=== PATIENT | female | born 1960 | race Two or more races ===

== ENCOUNTER 2021-08-27 17:28 | Inpatient (IN) | payer MEDICAID ==
[~2021-08-27] VITALS: Ht 154.9 cm; Wt 72.7 kg
[~2021-08-27 17:28] MED LIST: dexamethasone sod phosphate 10mg/ml inj ONE; ePHEDrine 50MG/ML INJ. ONE; glycopyrrolate 0.2mg/ml inj ONE; neostigmine methylsulfate 1 MG/ML 10ml vial ONE; sevoflurane 250ml liquid IH ONE
[2021-08-27 18:25] LABS: BASOPHILS # (AUTO) 0.1 X10'3 (0-0.2); BASOPHILS % (AUTO) 0.6 % (0-1); EOSINOPHILS # (AUTO) 0.1 X10'3 (0-0.9); EOSINOPHILS % (AUTO) 0.6 % (0-6); HEMATOCRIT 39.5 % (35.0-45.0); HEMOGLOBIN 13.2 g/dl (12.0-16.0); LYMPHOCYTES # (AUTO) 1.6 X10'3 (1.1-4.8); LYMPHOCYTES % (AUTO) 10.7 % (21-51); MEAN CORPUSCULAR HEMOGLOBIN 27.1 PG (27.0-31.0); MEAN CORPUSCULAR HGB CONC 33.5 g/dL (33.0-36.5); MEAN CORPUSCULAR VOLUME 80.9 FL (78-98); MONOCYTES # (AUTO) 0.9 X10'3 (0-0.9); NEUTROPHILS # (AUTO) 12.4 X10'3 (1.8-7.7); NEUTROPHILS % (AUTO) 82.1 % (42-75); PLATELET COUNT 430 X10'3 (140-440); RED BLOOD COUNT 4.88 X10'6 (4.20-5.60); RED CELL DISTRIBUTION WIDTH 14.2 % (11.5-14.5); WHITE BLOOD COUNT 15.1 X10'3 (4.5-11.0)
[2021-08-27 18:40] LABS: ALANINE AMINOTRANSFERASE 41 U/L (12-78); ALBUMIN 4.3 G/DL (3.4-5.0); ALKALINE PHOSPHATASE 85 IU/L (46-116); ANION GAP 10 (8-16); ASPARTATE AMINO TRANSFERASE 19 U/L (10-37); BILIRUBIN,TOTAL 0.6 MG/DL (0.1-1.0); BLOOD UREA NITROGEN 8 MG/DL (7-18); BUN/CREATININE RATIO 10.4 (6.6-38.0); CHLORIDE 100 MMOL/L (99-107); CREATININE 0.77 MG/DL (0.40-0.90); GLUCOSE 122 MG/DL (70-104); LIPASE 81 U/L (73-393); POTASSIUM 3.9 MMOL/L (3.5-5.1); SODIUM 135 MMOL/L (135-145); TOTAL CARBON DIOXIDE 25.3 MMOL/L (24-32); TOTAL PROTEIN 8.5 G/DL (6.4-8.2); eGFR 76 ML/MIN
[2021-08-27] MEDS ORDERED: normal saline 1000ml 1,000 ML IV ONE (22:40)
[2021-08-27] MEDS ORDERED: ketorolac tromethamine 15mg/ml inj. IV ONE (22:40)
[2021-08-27] MEDS ORDERED: ondansetron/PF 4mg/2ml inj IV ONE (22:40)
[2021-08-27] MEDS ORDERED: normal saline 1000ML IV soln IVB ONE (22:40)
[2021-08-27] MEDS ORDERED: IOHEXOL 300 MG/ML 30ML INFUS..BTL IV ONE (22:53)
[2021-08-27 23:33] LABS: APTT 35 SECONDS (22-32)
[2021-08-27 23:39] LABS: CLARITY,URINE CLEAR (Clear); COLOR,URINE YELLOW (Yellow); GLUCOSE, URINE NEGATIVE (Neg); KETONES,URINE 15 mg/dl (Neg); LEUKOCYTE ESTERASE ,URINE NEGATIVE (Neg); NITRITES, URINE NEGATIVE (Neg); OCCULT BLOOD,URINE NEGATIVE (Neg); PROTEIN,URINE NEGATIVE (Neg); URINE HCG NEGATIVE (NEG)
[2021-08-27 23:40] LABS: MAGNESIUM 1.9 MG/DL (1.5-2.4)
[2021-08-27 23:43] LABS: UA COLLECTION TYPE NON-SPECIFIED
[2021-08-27] MEDS ORDERED: HYDROcodone/acetaminophen 5mg/325mg tablet PO PRN (23:45)
[2021-08-27] MEDS ORDERED: magnesium hydroxide 30ml (MOM) UD suspension PO PRN (23:45)
[2021-08-27] MEDS ORDERED: metoclopramide 5 mg/ml inj IV PRN (23:45)
[2021-08-27] MEDS ORDERED: acetaminophen 325mg tablet PO PRN ×2 (23:45)
[2021-08-27] MEDS ORDERED: ondansetron/PF 4mg/2ml inj IV PRN (23:45)
[2021-08-27] MEDS ORDERED: mag hydrox/Alum hydrox/simeth 30ml oral suspension PO PRN (23:45)
[2021-08-27] MEDS ORDERED: morphine 2 MG/ML inj. syringe IV PRN (23:45)
[2021-08-28] VITALS (17 sets, daily range): BP systolic 99–144; BP diastolic 52–83
[2021-08-28] MEDS: morphine 2 MG/ML inj. syringe IV PRN ×2 (00:15→07:49)
[2021-08-28] MEDS: piperacillin/tazo 4.5gm/100ml 100 ML IV SCH ×4 (00:59→19:45)
[2021-08-28] MEDS: dextrose 5%-1/2 normal saline 1,000 ML IV SCH ×3 (01:00→21:07)
[2021-08-28 02:23] LABS: BASOPHILS % (AUTO) 0.2 % (0-1); EOSINOPHILS % (AUTO) 0.1 % (0-6); HEMATOCRIT 34.8 % (35.0-45.0); HEMOGLOBIN 11.9 g/dl (12.0-16.0); LYMPHOCYTES # (AUTO) 1.3 X10'3 (1.1-4.8); LYMPHOCYTES % (AUTO) 9.6 % (21-51); MEAN CORPUSCULAR HEMOGLOBIN 27.8 PG (27.0-31.0); MEAN CORPUSCULAR VOLUME 81.8 FL (78-98); MONOCYTES # (AUTO) 0.7 X10'3 (0-0.9); MONOCYTES % (AUTO) 5.2 % (2-12); NEUTROPHILS # (AUTO) 11.6 X10'3 (1.8-7.7); NEUTROPHILS % (AUTO) 84.9 % (42-75); PLATELET COUNT 358 X10'3 (140-440); RED BLOOD COUNT 4.26 X10'6 (4.20-5.60); RED CELL DISTRIBUTION WIDTH 14.2 % (11.5-14.5); WHITE BLOOD COUNT 13.7 X10'3 (4.5-11.0)
[2021-08-28 02:34] LABS: ALANINE AMINOTRANSFERASE 36 U/L (12-78); ALBUMIN 3.7 G/DL (3.4-5.0); ALBUMIN/GLOBULIN RATIO 0.9 (1.1-1.5); ALKALINE PHOSPHATASE 74 IU/L (46-116); ANION GAP 10 (8-16); ASPARTATE AMINO TRANSFERASE 21 U/L (10-37); BILIRUBIN,TOTAL 0.5 MG/DL (0.1-1.0); BLOOD UREA NITROGEN 7 MG/DL (7-18); BUN/CREATININE RATIO 10.4 (6.6-38.0); CALCIUM 8.7 MG/DL (8.5-10.1); CHLORIDE 101 MMOL/L (99-107); CREATININE 0.67 MG/DL (0.40-0.90); GLUCOSE 140 MG/DL (70-104); SODIUM 135 MMOL/L (135-145); TOTAL CARBON DIOXIDE 23.7 MMOL/L (24-32); eGFR 90 ML/MIN
[2021-08-28 02:51] LABS: POTASSIUM 4.1 MMOL/L (3.5-5.1)
--- NOTE | 2021-08-28 03:17 | NUR ---
Patient urinated in bedside commode x1
[2021-08-28] MEDS: docusate sod 100mg capsule PO SCH ×2 (07:23→19:45)
--- NOTE | 2021-08-28 09:46 | NUR ---
assisting RN with pt care...pt c/o upper abd pain 8/10 and nausea, medicated per order, pt is aware she is going to surgery this afternoon
[2021-08-28] MEDS ORDERED: ringers solution, lacted 1,000 ML IV SCH ×2 (10:40→13:50)
[2021-08-28] MEDS ORDERED: OMEP20CA16 PO (11:39)
[2021-08-28] MEDS ORDERED: famotidine/PF 10 mg/ml inj IV ONE (12:00)
--- NOTE | 2021-08-28 13:00 | NUR ---
RECEIVED PT TO THE PAS UNIT, PAPERWORK COMPLETED, LABWORK PRINTED, IV IN PLACE FROM ER PT STATES SHE STILL HER HER UNDERWEAR ON, BUT SHE IS INCONTINENT OF URINE AND DOES NOT WANT TO REMOVE THEM
[2021-08-28] MEDS ORDERED: proCHLORperazine 10 MG/2 ml inj IV PRN (13:50)
[2021-08-28] MEDS ORDERED: morphine 4 MG/ML inj SYRINge IV PRN (13:50)
[2021-08-28] MEDS ORDERED: ondansetron/PF 4mg/2ml inj IV PRN (13:50)
[2021-08-28] MEDS ORDERED: meperidine/PF 25mg/ml syringe IV PRN ×3 (13:50)
[2021-08-28] MEDS ORDERED: morphine 2 MG/ML inj. syringe IV PRN (13:50)
[2021-08-28] MEDS ORDERED: BUPIVAcaine 0.5% inj/PF 30 ML ONE (14:00)
[2021-08-28] MEDS ORDERED: midazolam 1 mg/ML 2ml injection ONE (14:25)
[2021-08-28] MEDS ORDERED: fentaNYL/PF 50MCG/1 ML 2ML syringe ONE (14:25)
[2021-08-28] MEDS ORDERED: propofol inj 20 ML IV ONE (14:26)
[2021-08-28] MEDS ORDERED: LIDOcaine 2% (20mg/ml) 5ml vial ONE (14:26)
--- NOTE | 2021-08-28 14:30 | NUR ---
PATIENT WATCHING TV RESTING COMFORTABLY, PT ASSISTED UP TO THE BATHROOM, STEADY ON FEET. STATES PAIN IS BETTER RIGHT NOW AND HER STOMACH FEELS BETTER AFTER PEPCID IV
[2021-08-28] MEDS ORDERED: rocuronium 10mg/ml inj IV ONE (14:44)
[2021-08-28] MEDS ORDERED: ondansetron/PF 4mg/2ml inj ONE (15:38)
[2021-08-28] MEDS ORDERED: meperidine/PF 25mg/ml syringe ONE (15:52)
[2021-08-28] MEDS ORDERED: ketorolac trometh. 30mg/ml inj. ONE (16:11)
--- NOTE | 2021-08-28 16:27 | NUR ---
Received from OR via [facility] , accompanied by Anesthesiologist STEPHY and report given by Anesthesiolgist. 20G R AC; 4 CDI PIECES OF GAUZE IN PLACE COVERED BY OP SITE. OBSERVED THAT PATIENT BEGAN TO STRUGGLE WITH HER BREATHING WITH SATUATIONS DROPPING IN 70S. PATIENT HEAD OF BED BROUGHT DOWN. AMBU BAG HOOKED UP AND WE BAGAN MECHANICAL BAGGING WITH JAW THRUST WELL. PATIENT RESPONDED WELL TO BAGGING AND ADDITIONAL DOSE OF SUGAMMADEX( ADMINISTERED VIA MD KEYES). VSS. AND PATIENT NOW ON 10L MASK WITH 97-99% SATURATIONS. NO C.O. AT THIS TIME. WILL CONTINUE TO ASSESS AND TREAT NEEDED. Addendum: 08/28/21 at 1712 by Feliz Samson RN RN Amended: Links added.
[2021-08-28] MEDS ORDERED: sugammadex 200mg/2ml injection IV ONE (16:30)
--- NOTE | 2021-08-28 17:41 | NUR ---
Received report from fede RAMSAY, and Feliz HENDERSON.
--- NOTE | 2021-08-28 18:10 | NUR ---
the first two post op vital signs are under regular VS Addendum: 08/28/21 at 1811 by Laura Day RN Amended: Links added.
--- NOTE | 2021-08-28 18:26 | NUR ---
Problems reprioritized. Patient report given, questions answered & plan of care reviewed with Taryn HENDERSON.
--- NOTE | 2021-08-28 18:43 | NUR ---
Patient in room ED 1. I have received report from Laura HENDERSON and had the opportunity to ask questions and assume patient care. Addendum: 08/29/21 at 0617 by Taryn Marquez RN Room 401
[2021-08-28] MEDS: HYDROcodone/acetaminophen 10/325mg tab PO PRN (21:07)
[2021-08-29] MEDS: piperacillin/tazo 4.5gm/100ml 100 ML IV SCH ×2 (00:54→07:51)
[2021-08-29 02:00] VITALS: BP 98/50
[2021-08-29] MEDS: HYDROcodone/acetaminophen 10/325mg tab PO PRN ×2 (04:24→07:54)
[2021-08-29] MEDS: dextrose 5%-1/2 normal saline 1,000 ML IV SCH (05:45)
[2021-08-29 06:00] VITALS: BP 114/70
--- NOTE | 2021-08-29 06:18 | NUR ---
Problems reprioritized. Patient report given, questions answered & plan of care reviewed with Laura HENDERSON.
[2021-08-29 06:38] LABS: BASOPHILS % (AUTO) 0.1 % (0-1); EOSINOPHILS % (AUTO) 0 % (0-6); HEMATOCRIT 31.1 % (35.0-45.0); HEMOGLOBIN 10.6 g/dl (12.0-16.0); LYMPHOCYTES % (AUTO) 8.2 % (21-51); MEAN CORPUSCULAR HEMOGLOBIN 27.7 PG (27.0-31.0); MEAN CORPUSCULAR HGB CONC 34.2 g/dL (33.0-36.5); MEAN CORPUSCULAR VOLUME 80.8 FL (78-98); MEAN PLATELET VOLUME 7.2 FL (7.4-10.4); MONOCYTES # (AUTO) 0.5 X10'3 (0-0.9); MONOCYTES % (AUTO) 4.4 % (2-12); NEUTROPHILS # (AUTO) 10.3 X10'3 (1.8-7.7); NEUTROPHILS % (AUTO) 87.3 % (42-75); PLATELET COUNT 319 X10'3 (140-440); RED BLOOD COUNT 3.84 X10'6 (4.20-5.60); RED CELL DISTRIBUTION WIDTH 13.9 % (11.5-14.5); WHITE BLOOD COUNT 11.8 X10'3 (4.5-11.0)
[2021-08-29 06:52] LABS: ALANINE AMINOTRANSFERASE 38 U/L (12-78); ALBUMIN 3.3 G/DL (3.4-5.0); ALBUMIN/GLOBULIN RATIO 0.9 (1.1-1.5); ALKALINE PHOSPHATASE 63 IU/L (46-116); ANION GAP 8 (8-16); ASPARTATE AMINO TRANSFERASE 17 U/L (10-37); BILIRUBIN,TOTAL 0.6 MG/DL (0.1-1.0); BLOOD UREA NITROGEN 6 MG/DL (7-18); BUN/CREATININE RATIO 7.5 (6.6-38.0); CHLORIDE 100 MMOL/L (99-107); GLUCOSE 142 MG/DL (70-104); POTASSIUM 3.8 MMOL/L (3.5-5.1); SODIUM 131 MMOL/L (135-145); TOTAL CARBON DIOXIDE 22.9 MMOL/L (24-32); TOTAL PROTEIN 7.1 G/DL (6.4-8.2); eGFR 73 ML/MIN
[2021-08-29] MEDS ORDERED: pantoprazole 40mg Tablet.DR PO PRN (07:30)
[2021-08-29] MEDS: docusate sod 100mg capsule PO SCH (07:51)
--- NOTE | 2021-08-29 08:22 | NUR ---
Malnutrition consult: pt admitted w/ acute cholecystitis, underwent lap cholecystectomy this admit per EMR. Pt unsure of wt loss per MST. Current wt appropriate w/ no wt hx in EMR. Appears WD/WN per ED note. No edema noted, has normal muscle strength. At this time pt does not meet minimum criteria for malnutrition. Addendum: 08/29/21 at [address] Amended: Links added.
[2021-08-29 10:00] VITALS: BP 106/47
[2021-08-29] MEDS ORDERED: HYDR-3965 PO (12:40)
--- NOTE | 2021-08-29 14:36 | NUR ---
Discharge in process, waiting for a ride. Signed papers, gave Dr. Solis number and address for follow-up appointment.
== END 2021-08-29 15:25 | disposition home health service (06) | DRG 263 ==
LOC: ER 17:29 → ED HOLD 23:48 → UNDOADMIN 23:48 → ORTHO 4S 08-28 19:37
PROVIDERS: ADMIT Internal Medicine; ATTEND Family Medicine
PROC: BW211ZZ Computerized Tomography (CT Scan) of Abdomen and Pelvis using Low Osmolar Contrast (ICD-10-PCS; 2021-08-27)
PROC: 0FT44ZZ Resection of Gallbladder, Percutaneous Endoscopic Approach (ICD-10-PCS; principal; 2021-08-28 15:17)
DX: K80.00 Calculus of gallbladder with acute cholecystitis without obstruction (principal); E66.9 Obesity, unspecified; K21.9 Gastro-esophageal reflux disease without esophagitis; Z20.822 Contact with and (suspected) exposure to COVID-19; Z68.30 Body mass index [BMI] 30.0-30.9, adult
CPT/HCPCS: 36415; 74177; 76700; 80053; 81003; 81025; 83605; 83690; 83735; 84145; 84484; 85025; 85610; 85730; 87040; 87081; 87635; 93005; 96374; 96375; 99285; A4215; A4618; A6258; A6449; A7000; G0378; J1100; J1885; J2175; J2250; J2270; J2405; J2543; J2704; J2710; J2765; J3010; J3490; J7030; J7042; J7120; S0020